=== PATIENT | female | born 1990 | race Asian ===

== ENCOUNTER 2019-09-26 01:31 | Emergency (ER) | payer OTHER ==
[~2019-09-26] VITALS: Ht 165.1 cm; Wt 54.0 kg
[2019-09-26] MEDS ORDERED: ONDANSETRON HCL 4MG/2ML INJ IV STA (03:37)
[2019-09-26] MEDS ORDERED: SODIUM CHLORIDE 0.9% 1,000 ML IV ONE (03:37)
[2019-09-26 04:02] LABS: CLARITY URINE TURBID (CLEAR); COLOR URINE YELLOW (YELLOW); KETONES URINE NEGATIVE (NEGATIVE); LEUKOCYTE ESTERASE URINE NEGATIVE (NEGATIVE); NITRITE URINE NEGATIVE (NEGATIVE); OCCULT BLOOD URINE NEGATIVE (NEGATIVE); PH URINE 7.5 (4.5-8.0); PROTEIN URINE TRACE (NEGATIVE); SPECIFIC GRAVITY URINE 1.022 (1.005-1.030); UROBILINOGEN URINE 0.2 E.U./dL (0.2-1.0)
[2019-09-26 04:12] LABS: *AMPHETAMINES SCREEN URINE NEGATIVE (NEGATIVE); *BARBITURATES SCREEN URINE NEGATIVE (NEGATIVE); *BENZODIAZEPINES SCREEN URINE NEGATIVE (NEGATIVE); *COCAINE SCREEN URINE NEGATIVE (NEGATIVE); METHADONE URINE SCREEN NEGATIVE (NEGATIVE); OPIATES URINE SCREEN NEGATIVE (NEGATIVE)
[2019-09-26 04:13] LABS: PHENCYCLIDINE URINE SCREEN NEGATIVE (NEGATIVE)
[2019-09-26 04:14] LABS: HEMATOCRIT. 42.4 % (36.0-48.0); HEMOGLOBIN. 14.2 g/dL (12.0-16.0); MEAN CORPUSCULAR HEMOGLOBIN 31.5 pg (28.0-32.0); MEAN CORPUSCULAR VOLUME 94.1 fL (81.0-99.0); MEAN PLATELET VOLUME 8.1 fl (7.4-10.4); PLATELET 226 x1000/uL (130-400); RED BLOOD CELL COUNT 4.51 mill/uL (4.2-5.4); RED CELL DISTRIBUTION WIDTH 12.7 % (11.6-14.6)
[2019-09-26 04:16] LABS: CHLORIDE 107 mEq/L (98-107)
[2019-09-26 04:20] LABS: ETHANOL BLOOD < 10 mg/dL
[2019-09-26 04:31] LABS: CANNABINOID URINE SCREEN PRESUMTIVE POSITIVE (NEGATIVE)
[2019-09-26 06:23] VITALS: BP 108/56
[2019-09-26 07:08] LABS: PLATELET ESTIMATE NORMAL
== END 2019-09-26 06:45 | disposition home or self-care (01) ==
LOC: ER 01:31
DX: F12.10 Cannabis abuse, uncomplicated (principal); E86.0 Dehydration
CPT/HCPCS: 36415; 80053; 80305; 80320; 81003; 81025; 85025; 93005; 96374; 99284; J2405; J7030; G0480